=== PATIENT | male | born 2005 | race Caucasian/White ===

== ENCOUNTER 2025-06-17 07:59 | Emergency (ER) | payer OTHER, SELFPAY ==
[2025-06-17 08:05] VITALS: BP 128/65; PULSE 120; RESP 18; O2SAT 100
[2025-06-17 08:08] VITALS: BP 128/65; PULSE 108; RESP 20; O2SAT 100
[2025-06-17] MEDS: levETIRAcetam 1000MG/NACL100ML 1,000 MG/100 ML BAG 400 MG IVPB (08:26)
[2025-06-17] MEDS: ONDANSETRON INJ 4 MG/2 ML VIAL IV PUSH (08:27)
[2025-06-17 08:44] LABS: Hematocrit 44.1 % (42.0-52.0); Hemoglobin 15.1 g/dL (14.0-18.0); Immature Granulocyte Percent A 0.3 % (0-0.5); Lymphocytes Absolute Auto 3.85 K/mm3 (0.9-3.2); Mean Corpuscular HGB Conc 34.2 g/dl (32-36); Mean Corpuscular Hemoglobin 31.1 pg (26-34); Mean Corpuscular Volume 90.7 fl (80-100); Nucleated Red Blood Cells Absolute Auto 0.000 K/mm3 (0.0-0.012); Nucleated Red Blood Cells Perc 0.0 % (0.0-0.2); Platelet Count Result 356 k/mm3 (150-375); Red Blood Count 4.86 M/mm3 (4.6-6.20); White Blood Count 10.4 K/mm3 (4.5-10.0)
[2025-06-17 09:02] LABS: Alanine Aminotransferase 14 U/L (6-50); Albumin Level 4.8 g/dL (3.5-5.1); Alkaline Phosphatase 108 U/L (38-126); Anion Gap 14 mmol/L (4-12); Aspartate Amino Transferase 28 U/L (17-59); Bilirubin,Total 0.3 mg/dL (0.2-1.3); Blood Urea Nitrogen 11 mg/dL (9-20); Calcium 9.7 mg/dL (8.4-10.2); Carbon Dioxide 20 mmol/L (22-30); Chloride 105 mmol/L (98-107); Estimated CRCL calculation 121 ml/min; Estimated Glomerular Filt Rate > 60; Glucose 109 mg/dL (65-110); Potassium 3.6 mmol/L (3.4-5.0); Sodium 139 mmol/L (137-145); Total Protein 7.9 g/dL (6.3-8.2)
--- NOTE | 2025-06-17 10:42 | ED.ANXIETY ---
HPI - Anxiety General Chief Complaint: Anxiety Stated Complaint: panic attack this AM Time Seen by Provider: 06/17/25 08:09 Source: patient and family Mode of arrival: ambulatory Limitations: no limitations History of Present Illness HPI narrative: 20-year-old with a history of anxiety disorder, seizure disorder here with a complains of having anxiety, panic attack. Patient states that he woke up with the fogginess in the head chest discomfort abdominal pain associated with nausea. He states that he ran out of his Keppra 2 days ago . Denies any chest pain no fevers chills fever MD complaint: anxiety Related Data Allergies Allergy/AdvReac Type Severity Reaction Status Date / Time No Known Allergies Allergy Verified 06/17/25 08:00 Review of Systems Review of Systems: All systems reviewed & are unremarkable except as noted in HPI and below Constitutional: Constitutional: Reports no additional constitutional complaints Eyes: Eyes: Reports no additional eye complaints ENT: Reports system reviewed and no additional complaints, except as documented Cardiovascular: Cardiovascular: Reports no additional cardiovascular complaints Respiratory: Respiratory: Reports no additional respiratory complaints Gastrointestinal: Gastrointestinal: Reports no additional gastrointestinal complaints Musculoskeletal: Musculoskeletal: Reports no additional musculoskeletal complaints Neurologic: Reports system reviewed and no additional complaints, except as documented PMFSH Social History Social History Substance use type: marijuana Exam Narrative: GENERAL: Well-appearing, well-nourished, and in no acute distress. Anxious HEAD: Normocephalic, atraumatic. EYES: PERRLA and EOMI. ENT: Nares clear, no rhinorrhea or epistaxis. Mucous membranes moist. NECK: Supple. CHEST: Clear to auscultation. No respiratory distress. HEART: Regular rate and rhythm. No murmur heard. Normal peripheral pulses. ABDOMEN: Soft, nontender, nondistended, normal active bowel sounds. EXTREMITIES: Normal range of motion. No edema. SKIN: Warm, dry, no rash. NEURO: No focal deficits. Alert and oriented x3. PSYCH: Normal mood and affect. Course Course Emergency Course: Patient was given IV Keppra 1000 mg, along with IV fluids. He started feeling better. Advised him to continue his home medication. Notified him about his lab work. Vital Signs Vital signs: Vital Signs Pulse Rate 120 H 06/17/25 08:05 Respiratory Rate 18 06/17/25 08:05 Blood Pressure 128/65 06/17/25 08:05 Pulse Oximetry 100 06/17/25 08:05 Pulse Rate 86 06/17/25 11:08 Respiratory Rate 18 06/17/25 11:08 Blood Pressure 121/77 06/17/25 11:08 Pulse Oximetry 98 06/17/25 11:08 Oxygen Delivery Room Air 06/17/25 08:08 MDM - Anxiety Differential Diagnosis Differential diagnosis: Likely hyperventilation and acute anxiety Medical Records Attestation: I reviewed the patient's medical records. Lab Data Attestation: I reviewed the patient's lab results. 06/17/25 08:34 06/17/25 08:34 Labs: Lab Results 06/17/25 Range/Units 08:34 WBC 10.4 H (4.5-10.0) K/mm3 RBC 4.86 (4.6-6.20) M/mm3 Hgb 15.1 (14.0-18.0) g/dL Hct 44.1 (42.0-52.0) % MCV 90.7 (80-100) fl MCH 31.1 (26-34) pg MCHC 34.2 (32-36) g/dl RDW 12.8 (11.5-14.5) % Plt Count 356 (150-375) k/mm3 MPV 8.8 (7.4-10.4) fl Immature Gran % (Auto) 0.3 (0-0.5) % Neut % (Auto) 51.3 (45.5-73.1) % Lymph % (Auto) 37.1 (18.3-44.2) % [place] % (Auto) 7.8 (2.6-8.5) % Eos % (Auto) 2.8 (0-4.4) % Baso % (Auto) 0.7 (0.2-1.2) % Lymph # (Auto) 3.85 H (0.9-3.2) K/mm3 [place] # (Auto) 0.8 H (0.1-0.6) K/mm3 Eos # (Auto) 0.3 (0-0.3) K/mm3 Baso # (Auto) 0.1 (0.0-0.1) K/mm3 Abs Immat Gran (auto) 0.03 (0.00-0.031) K/mm3 Absolute Neuts (auto) 5.3 (1.3-6.7) K/mm3 Absolute Nucleated RBC 0.000 (0.0-0.012) K/mm3 Nucleated RBC % 0.0 (0.0-0.2) % Sodium 139 (137-145) mmol/L Potassium 3.6 (3.4-5.0) mmol/L Chloride 105 (98-107) mmol/L Carbon Dioxide 20 L (22-30) mmol/L Anion Gap 14 H (4-12) mmol/L BUN 11 (9-20) mg/dL Creatinine 0.76 (0.7-1.3) mg/dL Estim Creat Clear Calc 121 ml/min Estimated GFR > 60 (59 - ) Glucose 109 (65-110) mg/dL Calcium 9.7 (8.4-10.2) mg/dL Total Bilirubin 0.3 (0.2-1.3) mg/dL AST 28 (17-59) U/L ALT 14 (6-50) U/L Alkaline Phosphatase 108 (38-126) U/L Total Protein 7.9 (6.3-8.2) g/dL Albumin 4.8 (3.5-5.1) g/dL Discharge Plan Discharge Clinical Impression: Acute anxiety Patient Disposition: Home Condition: Stable Instructions: Anxiety (ED) Additional Instructions: continue home medications, follow with your doctor Patient Language: Upper Sorbian Follow-up/Referrals: Anselmo Corbin MD [Physician, Family Practice] UNKNOWN,DOCTOR [Primary Care Provider] Time of Disposition: 10:43
--- OUTSIDE RECORDS SUMMARY | 2025-06-17 11:01 | XMS_ITS | Clinical Summary ---
Author Organization [facility] Address [address] [place] [address] Care Team Providers Care Electronic Specialist Name Role Phone Susie Bass MD Primary Care Provid er Allergies No known active allergies Medications albuterol HFA (PROVENTIL HFA,VENTOLIN HFA,PROAIR HFA) 90 mcg/actuation inhaler 2 puffs 4 Active pyridoxine (VITAMIN B-6) 50 mg tablet Take 1 tablet (50 mg total) by mouth daily 90 tablet 3 4 Active midazolam (NAYZILAM) 5 mg/spray (0.1 mL) spray,non-aeros ol spray units Administer 1 spray (5 mg total) into right nostril once as needed (seizure lasting longer than 5 minutes. If seizure activity persists after 10 minutes, can repeat 5mg dose into the alternate nostril.) for up to 1 dose A second dose should not be administered if patient is having trouble breathing or excessive sedation. 1 each 4 Active cholecalciferol (VITAMIN D-3) 25 mcg (1,000 unit) tablet Take 1 tablet (1,000 Units total) by mouth daily 90 tablet 3 4 Active levETIRAcetam (KEPPRA) 1,000 mg tablet Take 1 tablet (1,000 mg total) by mouth 2 (two) times a day 60 tablet 5 4 Active Active Problems Problem Noted Date Diagnosed Date Seizures 06/14/2023 Immunizations Immunization Administration Dates Next Due DTaP / Hep B / IPV 2005,2005, 005 DTaP 5 Pertussis 04/01/2009,09/06/2006 Hep A, Ped Unspecified 05/13/2010 Hep A, Pediatric 04/10/2007 Hib (PRP-OMP) 05/22/2006 Hib (PRP-T) 2005,2005,2005 IPV 04/01/2009 Influenza, Quadrivalent, Spl it, Preservative Free, Intramuscular 06/02/2017,04/27/2016 Influenza, Trivalent, IM (MDV) 09/06/2006 MMR 04/01/2009,02/26/2006 Meningococcal A,C,W,Y-TT (Ak a Menquadfi) 06/12/2022 Meningococcal MCV4P (Menactra) 03/24/2016 Pneumococcal Conjugate PCV 13 02/26/2006 ,2005,2005,04/11 Tdap 03/22/2016 Varicella 04/01/2009,05/22/2006 Medical History Medical History Date Comments Anxiety Depression Cerebral cavernoma Family History Medical History Relation Name Comments Cerebral cavernoma Brother Cerebral cavernomas Maternal Grandmother Seizures Maternal Grandmother Developmental delay Neg Hx Relation Name Status Comments Brother Maternal Grandmother Social History Tobacco Use Types Packs/Day Years Used Date Smoking Tobacco: Every Day Cigarettes Tobacco Cessation:Ready to Q uit: Not Asked; Counseling Given: Yes Personal Safety Answer Date Recorded Have you ever been in or are you currently in a harmful physical or emotional relationship or is someone making you feel afraid or unsafe? Denies 06/14/2023 Sex and Gender Information Value Date Recorded Sex Assigned at Not on file Legal Sex Male 9:27 AM CDT Gender Identity Not on file Sexual Orientation Not on file Obstetrics History Last Filed Vital Signs Vital Sign Reading Time Taken Comments Blood Pressure 109/70 03/05/2024 12:57 PM CDT Pulse 60 03/05/2024 12:57 PM CDT Temperature 36.1 C (97 F) 03/05/2024 12:57 PM CDT Respiratory Rate 16 06/15/2023 8:00 AM CDT Oxygen Saturation 98% 06/15/2023 9:00 AM CDT Inhaled Oxygen Concentration - - Weight 50.4 kg (111 lb 3.2 oz) 03/05/2024 12:57 PM CDT Height 172.7 cm (5' 8) 03/05/2024 12:57 PM CDT Body Mass Index 16.91 03/05/2024 12:57 PM CDT Plan of Treatment Health Maintenance Due Date Last Done Comments Depression Screening 2005 Hepatitis C Screening 2005 Pneumococcal vaccine <65 (1 of 1 - PPSV23, PCV20, or PCV21) 2011 02/26/2006, 2005, 2005, Additional history exists HPV Vaccines (1 - Male 3-dos e series) 02/11/2020 Meningococcal B Vaccine (1 o f 2 - Standard) 2021 Regular Well Visit/Exam 18-64 2023 Influenza Vaccine (#1) 2025 7, 04/27/2016, 09/06/2006 DTaP/Tdap/Td Vaccine (7 - Td or Tdap) 03/22/2026 03/22/2016, 04/01/2009, 09/06/2006, Additional history exists Hepatitis B Screening Completed 2005 , 2005, 2005 Varicella Vaccines Completed 04/01/2009, 05/22/2006 Meningococcal Vaccine Completed 06/12/2022, 016 [facility] Advance Directives For more information, please contact: [phone] * Full Code (Latest Code Status on File) Date Activated Date Inactivated Comments 06/14/2023 4:58 PM 06/15/2023 4:58 PM Care Teams Electronic Specialist Relationship Specialty Start Date End Date Susie Bass MD [address] [address] PCP - General Pediatrics 06/14/23
[2025-06-17 11:08] VITALS: BP 121/77; PULSE 86; RESP 18; O2SAT 98
== END 2025-06-17 11:09 | disposition home or self-care (01) ==
PROVIDERS: Emergency Provider Family Medicine
DX: F41.9 Anxiety disorder, unspecified (principal); G40.909 Epilepsy, unspecified, not intractable, without status epilepticus
CPT/HCPCS: 36415; 80053; 85025; 96365; 96375; 99284; J1953; J2405